=== PATIENT | male | born 1975 | race Caucasian/White ===

== ENCOUNTER 2018-07-03 17:41 | Emergency (ER) | payer SELFPAY ==
[~2018-07-03] VITALS: Ht 165.1 cm; Wt 70.0 kg
[2018-07-03 17:44] VITALS: BP 133/69
== END 2018-07-03 19:45 | disposition left against medical advice (07) ==
LOC: ER 17:41
DX: Z53.21 Procedure and treatment not carried out due to patient leaving prior to being seen by health care provider (principal)

== ENCOUNTER 2018-07-03 23:10 | Inpatient (IN) | payer OTHER, MEDICAID ==
[~2018-07-03] VITALS: Ht 167.6 cm; Wt 83.9 kg
[2018-07-04] MEDS ORDERED: LORAZEPAM 1MG TABLET PO ONE (03:45)
[2018-07-04] MEDS ORDERED: SODIUM CHLORIDE 0.9% 1,000 ML IV ONE (05:28)
[2018-07-04] MEDS ORDERED: ONDANSETRON HCL 4MG/2ML INJ IV STA (05:28)
[2018-07-04] MEDS ORDERED: KETOROLAC 15MG/ML VIAL IV ONE (05:30)
[2018-07-04 06:10] LABS: BASOPHILS % 0.1 % (0.0-2.0); HEMATOCRIT. 41.1 % (42.0-52.0); HEMOGLOBIN. 13.9 g/dL (14.0-18.0); LYMPHOCYTES % 7.3 % (20.0-50.0); MEAN CORPUSCULAR HEMOGLOBIN 33.1 pg (28.0-32.0); MEAN CORPUSCULAR VOLUME 97.7 fL (80.0-94.0); MEAN PLATELET VOLUME 7.6 fl (7.4-10.4); MONOCYTES % 3.1 % (2.0-8.0); NEUTROPHILS % 89.5 % (40.0-76.0); PLATELET 188 x1000/uL (130-400); RED BLOOD CELL COUNT 4.21 mill/uL (4.7-6.1); RED CELL DISTRIBUTION WIDTH 15.7 % (11.6-14.6)
[2018-07-04 06:13] LABS: CHLORIDE 97 mEq/L (98-107)
[2018-07-04] MEDS ORDERED: MORPHINE SULFATE 4 MG/ML CPJ (NOT FOR IM USE) IV ONE (07:45)
[2018-07-04] MEDS ORDERED: CHLORDIAZEPOXIDE 25MG CAPSULE PO ONE (07:45)
[2018-07-04] MEDS ORDERED: IOHEXOL-300 100 ML BOTTLE ONE (09:03)
[2018-07-04] MEDS ORDERED: HYDROMORPHONE HCL/PF 2MG/ML CPJ IV PRN ×2 (13:15→13:30)
[2018-07-04] MEDS ORDERED: CLONIDINE 0.1MG TABLET PO PRN (14:45)
[2018-07-04] MEDS ORDERED: ONDANSETRON HCL 4MG/2ML INJ IV PRN (14:45)
[2018-07-04] MEDS ORDERED: ACETAMINOPHEN 650MG SUPP PR PRN (14:45)
[2018-07-04] MEDS: DEXT 5%/0.45% NACL 1000ML 1,000 ML IV SCH (16:30)
[2018-07-04 18:37] VITALS: BP 123/67
[2018-07-04 18:39] VITALS: BP 132/78
[2018-07-04 20:00] VITALS: BP 134/87
[2018-07-05 00:06] VITALS: BP 126/78
[2018-07-05 04:00] VITALS: BP 132/86
[2018-07-05] MEDS: DEXT 5%/0.45% NACL 1000ML 1,000 ML IV SCH ×2 (05:32→18:12)
[2018-07-05 06:51] LABS: HEMATOCRIT. 41.3 % (42.0-52.0); HEMOGLOBIN. 14.2 g/dL (14.0-18.0); MEAN CORPUSCULAR HEMOGLOBIN 33.3 pg (28.0-32.0); MEAN CORPUSCULAR VOLUME 97.1 fL (80.0-94.0); MEAN PLATELET VOLUME 7.7 fl (7.4-10.4); PLATELET 154 x1000/uL (130-400); RED BLOOD CELL COUNT 4.25 mill/uL (4.7-6.1); RED CELL DISTRIBUTION WIDTH 15.3 % (11.6-14.6)
[2018-07-05 08:00] VITALS: BP 120/67
[2018-07-05 10:37] LABS: PLATELET ESTIMATE NORMAL
[2018-07-05 11:26] LABS: CHLORIDE 100 mEq/L (98-107)
[2018-07-05 12:49] LABS: LDL CHOLESTEROL 109 mg/dL (5-100)
[2018-07-05 12:50] LABS: HDL CHOLESTEROL 109 mg/dL (40-59)
[2018-07-05] MEDS: HYDROMORPHONE HCL/PF 2MG/ML CPJ IV PRN ×2 (13:55→16:08)
[2018-07-05 14:04] VITALS: BP 118/76
[2018-07-05 16:02] VITALS: BP 113/63
[2018-07-05 20:00] VITALS: BP 110/65
[2018-07-06] VITALS (7 sets, daily range): BP systolic 105–127; BP diastolic 59–76
[2018-07-06] MEDS: HYDROMORPHONE HCL/PF 2MG/ML CPJ IV PRN ×3 (04:59→21:31)
[2018-07-07] VITALS: BP 129/65
[2018-07-07 04:00] VITALS: BP 121/79
[2018-07-07 08:00] VITALS: BP 111/63
[2018-07-07 12:00] VITALS: BP 137/85
[2018-07-07 14:08] VITALS: BP 137/85
== END 2018-07-07 15:40 | disposition home or self-care (01) | DRG 282 ==
LOC: ER 07-04 07:43 → 7WST 07-04 07:55 → EDBEDREQ 07-04 08:02 → EDBEDREQTM 07-04 08:02 → ENRESERV 07-04 15:22 → 7WST 07-04 16:48
PROVIDERS: ADMIT Hospitalist; ATTEND Hospitalist
DX: K85.90 Acute pancreatitis without necrosis or infection, unspecified (principal); F10.20 Alcohol dependence, uncomplicated; Z82.49 Family history of ischemic heart disease and other diseases of the circulatory system
CPT/HCPCS: 36415; 71045; 74177; 80061; 83605; 93005; 96361; 96374; 96375; 99285; G0482; J1170; J1885; J2270; J2405; J7030; Q9967

== ENCOUNTER 2022-02-23 13:43 | Emergency (ER) | payer SELFPAY ==
[~2022-02-23] VITALS: Ht 170.2 cm; Wt 73.0 kg
[2022-02-23] MEDS ORDERED: MORPHINE SULFATE 4 MG/ML CPJ (NOT FOR IM USE) IV STA (14:07)
[2022-02-23] MEDS ORDERED: ONDANSETRON HCL 4MG/2ML INJ IV STA (14:07)
[2022-02-23] MEDS ORDERED: SODIUM CHLORIDE 0.9% 1,000 ML IV ONE (14:15)
[2022-02-23 14:43] LABS: BASOPHILS % 2.3 % (0.0-2.0); EOSINOPHILS % 0.5 % (0.0-5.0); HEMOGLOBIN. 8.9 g/dL (14.0-18.0); LYMPHOCYTES % 29.9 % (20.0-50.0); MEAN CORPUSCULAR HEMOGLOBIN 30.2 pg (28.0-32.0); MEAN CORPUSCULAR VOLUME 91.2 fL (80.0-94.0); MEAN PLATELET VOLUME 7.8 fl (7.4-10.4); MONOCYTES % 6.4 % (2.0-8.0); NEUTROPHILS % 60.9 % (40.0-76.0); PLATELET 74 x1000/uL (130-400); RED BLOOD CELL COUNT 2.96 mill/uL (4.7-6.1); RED CELL DISTRIBUTION WIDTH 17.1 % (11.6-14.6)
[2022-02-23 14:51] LABS: CHLORIDE 101 mEq/L (98-107)
[2022-02-23 15:16] LABS: ETHANOL BLOOD 404 mg/dL
[2022-02-23] MEDS ORDERED: AMOXICILLIN/POTASSIUM CLAVULANATE 875/125MG TAB PO ONE (15:30)
[2022-02-23 16:01] LABS: CLARITY URINE CLEAR (CLEAR); COLOR URINE YELLOW (YELLOW); KETONES URINE NEGATIVE (NEGATIVE); LEUKOCYTE ESTERASE URINE NEGATIVE (NEGATIVE); NITRITE URINE NEGATIVE (NEGATIVE); OCCULT BLOOD URINE NEGATIVE (NEGATIVE); PROTEIN URINE TRACE (NEGATIVE); SPECIFIC GRAVITY URINE 1.006 (1.005-1.030)
[2022-02-23 16:11] LABS: *AMPHETAMINES SCREEN URINE NEGATIVE (NEGATIVE); *BARBITURATES SCREEN URINE NEGATIVE (NEGATIVE); *BENZODIAZEPINES SCREEN URINE NEGATIVE (NEGATIVE); *COCAINE SCREEN URINE NEGATIVE (NEGATIVE); CANNABINOID URINE SCREEN NEGATIVE (NEGATIVE); METHADONE URINE SCREEN NEGATIVE (NEGATIVE); OPIATES URINE SCREEN NEGATIVE (NEGATIVE); PHENCYCLIDINE URINE SCREEN NEGATIVE (NEGATIVE)
[2022-02-23 20:00] VITALS: BP 115/67
[2022-02-23] MEDS ORDERED: AMOX1TAB16 MT (20:57)
[2022-02-23] MEDS ORDERED: IBUP-2029 MT (20:58)
== END 2022-02-24 05:00 | disposition home or self-care (01) ==
LOC: ER 13:43
DX: S02.2XXA Fracture of nasal bones, initial encounter for closed fracture (principal); Y08.89XA Assault by other specified means, initial encounter; Y93.89 Activity, other specified; Y92.89 Other specified places as the place of occurrence of the external cause; Y99.8 Other external cause status; F10.229 Alcohol dependence with intoxication, unspecified; Y90.8 Blood alcohol level of 240 mg/100 ml or more
CPT/HCPCS: 36415; 70450; 70486; 71045; 72125; 80053; 80305; 80307; 80320; 80329; 81003; 85025; 96361; 96374; 99285; J2405; J7030; G0480